=== PATIENT | female | born 2005 | race Hispanic/Latino ===

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

== ENCOUNTER 2024-04-26 18:19 | Emergency (ER) | payer MEDICAID, OTHER ==
[2024-04-26] MEDS ORDERED: Sodium Chloride 0.9% 1,000 ML ONE (18:32)
[2024-04-26 18:51] LABS: Hematocrit 37.3 % (36.0-47.0); Mean Corpuscular HGB CONC 32.1 g/dL (32.0-36.0); Mean Corpuscular Hemoglobin 25.7 pg (25.0-35.0); Mean Corpuscular Volume 80.1 fl (78.0-98.0); Platelet Count 214 10x3/uL (130-400); RBC Distribution Width 14.3 % (11.5-14.5); Red Blood Cell (RBC) Count 4.66 mill/uL (4.00-5.20)
[2024-04-26 19:05] LABS: MDiff Complete? YES
[2024-04-26 19:09] LABS: Lymphocytes 24 % (28-48); Metamyelocyte 1 % (0-0); Monocytes 6 % (0-4); Myelocyte 1 % (0-0); Neutrophil 68 % (31-61)
[2024-04-26 19:13] LABS: Anisocytosis SLIGHT = 6-15 cells (100X) (0-5/hpf); Hypochromia SLIGHT = 6-15 cells (100X) (0-5/hpf); Ovalocytes SLIGHT = 2-5 cells (100X) (0-1/hpf); Poikilocytosis SLIGHT = 6-15 cells (100X) (0-5/hpf)
[2024-04-26 19:14] LABS: Large Platelets SLIGHT (None Seen); Platelet Adequacy Comment Appears Adequate; Tear Drops SLIGHT = 2-5 cells (100X) (0-1/hpf); Toxic Granulation SLIGHT; Vacuoles SLIGHT
[2024-04-26 19:17] LABS: White Blood Cell (WBC) Count 9.6 10x3/uL (4.8-10.8)
[2024-04-26 19:21] LABS: ALT (SGPT) 18 U/L (8-55); AST (SGOT) 47 U/L (5-30); Albumin 2.3 g/dL (3.5-5.0); Alkaline Phosphatase 337 U/L (40-100); Anion Gap 16 mmol/L (10-20); BUN (Urea Nitrogen) 7 mg/dL (8.4-21.0); Bilirubin, Total 0.2 mg/dL (0.2-1.2); Calc. Creatinine Clearance 0 mL/min (70-130); Calcium 9.3 mg/dL (7.8-10.44); Carbon Dioxide 18 mmol/L (22-29); Chloride 105 mmol/L (98-107); Estimated GFR 132; Glucose 90 mg/dL (70-105); Potassium 4.3 mmol/L (3.5-5.1); Protein, Total 7.3 g/dL (6.0-8.3); Sodium 135 mmol/L (136-145)
== END 2024-04-26 19:37 | disposition short-term general hospital (02) ==
LOC: NAV ERS 18:19
DX: O42.92 Full-term premature rupture of membranes, unspecified as to length of time between rupture and onset of labor (principal); Z3A.37 37 weeks gestation of pregnancy
CPT/HCPCS: 80053; 85025; 99284; J7030